=== PATIENT | female | born 1960 | race African-American/Black ===

== ENCOUNTER 2017-06-16 05:50 | Inpatient (IN) | payer OTHER ==
[~2017-06-16] VITALS: Ht 167.6 cm; Wt 73.9 kg
[~2017-06-16 05:50] MED LIST: aspirin PO; metformin
[2017-06-16] MEDS ORDERED: ASPIRIN 325MG TABLET PO ONE (08:15)
[2017-06-16 08:27] LABS: BASOPHILS % 0.6 % (0.0-2.0); EOSINOPHILS % 3.3 % (0.0-5.0); HEMATOCRIT. 35.1 % (36.0-48.0); HEMOGLOBIN. 11.5 g/dL (12.0-16.0); LYMPHOCYTES % 21.3 % (20.0-50.0); MEAN CORPUSCULAR HEMOGLOBIN 24.9 pg (28.0-32.0); MEAN CORPUSCULAR VOLUME 76.2 fL (81.0-99.0); MEAN PLATELET VOLUME 6.6 fl (7.4-10.4); MONOCYTES % 5.7 % (2.0-8.0); NEUTROPHILS % 69.1 % (40.0-76.0); PLATELET 440 x1000/uL (130-400); RED BLOOD CELL COUNT 4.61 mill/uL (4.2-5.4); RED CELL DISTRIBUTION WIDTH 14.8 % (11.6-14.6)
[2017-06-16 08:36] LABS: PARTIAL THROMBOPLASTIN TIME 23.9 sec (23.4-31.0); PROTHROMBIN TIME 10.7 sec (9.4-11.6)
[2017-06-16 08:45] LABS: CARBON DIOXIDE 26 mEq/L (21-32); CHLORIDE 107 mEq/L (98-107); TROPONIN I < 0.02 ng/mL (0.00-0.04)
[2017-06-16 11:12] VITALS: BP 121/68
[2017-06-16 11:30] VITALS: BP 161/70
[2017-06-16] MEDS ORDERED: ZOLPIDEM TARTRATE 5MG TABLET PO PRN (12:00)
[2017-06-16] MEDS ORDERED: CLONIDINE 0.1MG TABLET PO PRN (12:00)
[2017-06-16] MEDS ORDERED: DIPHENHYDRAMINE 50MG/ML VIAL IV PRN (12:00)
[2017-06-16] MEDS ORDERED: ACETAMINOPHEN 325MG TABLET PO PRN (12:00)
[2017-06-16] MEDS ORDERED: TRAMADOL 50MG TABLET PO PRN (12:00)
[2017-06-16] MEDS ORDERED: LORAZEPAM 2MG/ML CPJ IV PRN (12:00)
[2017-06-16] MEDS ORDERED: GUAIFENESIN 200MG/10ML SUGAR FREE UDC PO PRN (12:00)
[2017-06-16] MEDS ORDERED: MORPHINE SULFATE 4 MG/ML CPJ (NOT FOR IM USE) IV PRN (12:00)
[2017-06-16] MEDS ORDERED: MAGNESIUM/ALUMINUM HYDROXIDE/SIMETHICONE 30ML UDC PO PRN (12:00)
[2017-06-16] MEDS ORDERED: NITROGLYCERIN 0.4MG TABLET SL SL PRN (12:00)
[2017-06-16] MEDS ORDERED: IPRATROPIUM/ALBUTEROL 0.5-3(2.5)MG/3ML NEB INH PRN (12:00)
[2017-06-16] MEDS ORDERED: NA PHOS,M-B/NA PHOS,DI-BA ENEMA 118ML PR PRN (12:00)
[2017-06-16] MEDS ORDERED: DOCUSATE SODIUM 100MG CAPSULE PO PRN (12:00)
[2017-06-16] MEDS: METOPROLOL TARTRATE 25MG TABLET PO SCH ×2 (12:20→21:00)
[2017-06-16] MEDS: PANTOPRAZOLE SODIUM 40 MG/VIAL IV SCH (12:21)
[2017-06-16] MEDS: ENOXAPARIN 40MG/0.4ML SYR SUBCUT SCH (12:21)
[2017-06-16 12:39] LABS: FOLIC ACID (FOLATE) SERUM 7.2 ng/mL (>5.38)
[2017-06-16 15:18] LABS: CREATINE KINASE 128 IU/L (26-192); CREATINE KINASE MB FRACTION 1.2 ng/mL (0.5-3.6); TROPONIN I < 0.02 ng/mL (0.00-0.04)
[2017-06-16 16:00] VITALS: BP 120/60
[2017-06-16] MEDS ORDERED: LORAZEPAM (16:13)
[2017-06-16] MEDS ORDERED: ABIL5 PO (16:13)
[2017-06-16] MEDS ORDERED: METF500T4 PO (16:13)
[2017-06-16] MEDS ORDERED: EFFEXOR (16:13)
[2017-06-16] MEDS ORDERED: DEXTROSE 50% WATER 50ML SYRINGE IV PRN (17:30)
[2017-06-16] MEDS ORDERED: ASPI-1158 PO (18:00)
[2017-06-16] MEDS: ONDANSETRON HCL 4MG/2ML VIAL IV PRN (18:45)
[2017-06-16 20:00] VITALS: BP 109/66
[2017-06-16] MEDS: INSULIN LISPRO 100 UNITS/ML SUBCUT SCH (21:00)
[2017-06-16] MEDS ORDERED: ATORVASTATIN CALCIUM 20MG TABLET PO SCH (21:00)
[2017-06-16] MEDS: BLOOD SUGAR DIAGNOSTIC STRIP TEST SCH (21:45)
[2017-06-16 23:06] LABS: CREATINE KINASE MB FRACTION 1.4 ng/mL (0.5-3.6); TROPONIN I 0.02 ng/mL (0.00-0.04)
[2017-06-17] VITALS: BP 117/61
[2017-06-17 04:23] VITALS: BP 117/61
[2017-06-17] MEDS: INSULIN LISPRO 100 UNITS/ML SUBCUT SCH ×4 (07:04→20:27)
[2017-06-17] MEDS: BLOOD SUGAR DIAGNOSTIC STRIP TEST SCH ×4 (07:04→20:27)
[2017-06-17 08:00] VITALS: BP 145/61
[2017-06-17] MEDS ORDERED: ASPIRIN 325MG EC TABLET PO SCH (09:00)
[2017-06-17] MEDS: PANTOPRAZOLE SODIUM 40 MG/VIAL IV SCH (09:28)
[2017-06-17] MEDS: METOPROLOL TARTRATE 25MG TABLET PO SCH ×2 (09:28→20:27)
[2017-06-17] MEDS: ONDANSETRON HCL 4MG/2ML VIAL IV PRN (09:34)
[2017-06-17] MEDS: ENOXAPARIN 40MG/0.4ML SYR SUBCUT SCH (12:46)
[2017-06-17 16:00] VITALS: BP 139/63
[2017-06-17 20:00] VITALS: BP 125/62
[2017-06-17] MEDS ORDERED: ATORVASTATIN CALCIUM 10MG TABLET PO SCH (21:00)
[2017-06-17 23:33] VITALS: BP 142/62
[2017-06-18 00:01] VITALS: BP 142/62
[2017-06-18] MEDS ORDERED: FAMOTIDINE 20MG/2ML VIAL IV SCH (09:00)
== END 2017-06-18 01:52 | disposition short-term general hospital (02) | DRG 311 ==
LOC: ER 05:50 → 5WST 09:34 → ENRESERV 10:03
PROVIDERS: ADMIT Internal Medicine; ATTEND Internal Medicine
DX: I24.9 Acute ischemic heart disease, unspecified (principal); I10 Essential (primary) hypertension; F32.9 Major depressive disorder, single episode, unspecified; E11.9 Type 2 diabetes mellitus without complications; D64.9 Anemia, unspecified; M19.90 Unspecified osteoarthritis, unspecified site; J44.9 Chronic obstructive pulmonary disease, unspecified; F41.9 Anxiety disorder, unspecified; M48.00 Spinal stenosis, site unspecified; E78.00 Pure hypercholesterolemia, unspecified; Z79.82 Long term (current) use of aspirin; Z85.3 Personal history of malignant neoplasm of breast; Z90.49 Acquired absence of other specified parts of digestive tract; Z90.710 Acquired absence of both cervix and uterus; Z90.11 Acquired absence of right breast and nipple
CPT/HCPCS: 36415; 70450; 71010; 80053; 80061; 82550; 82553; 82607; 82746; 82962; 83036; 83540; 83550; 83735; 83880; 84484; 85025; 85610; 85730; 93005; 93970; 99285; C9113; J1650; J2405

== ENCOUNTER 2023-07-29 10:48 | Emergency (ER) | payer OTHER, MEDICAID ==
[~2023-07-29] VITALS: Ht 172.7 cm; Wt 108.0 kg
[~2023-07-29 10:48] MED LIST changes: +ABIL5 PO; +ASPI-1406 PO; +EFFEXOR; +LORAZEPAM; +METF-414 PO; -aspirin PO; -metformin
[2023-07-29 10:52] VITALS: O2SAT 92
[2023-07-29 11:32] LABS: BASOPHILS % 0.5 % (0.0-2.0); DIFFERENTIAL COMMENT 0; EOSINOPHILS % 0.8 % (0.0-5.0); HEMATOCRIT. 31.9 % (36.0-48.0); LYMPHOCYTES % 12.1 % (20.0-50.0); MEAN CORPUSCULAR HEMOGLOBIN 24.4 pg (28.0-32.0); MEAN CORPUSCULAR HGB CONC 31.5 g/dL (31.0-37.0); MEAN CORPUSCULAR VOLUME 77.6 fL (81.0-99.0); MEAN PLATELET VOLUME 6.7 fl (7.4-10.4); MONOCYTES % 8.3 % (2.0-8.0); NEUTROPHILS % 78.3 % (40.0-76.0); PLATELET 491 x1000/uL (130-400); RED BLOOD CELL COUNT 4.11 mill/uL (4.2-5.4); RED CELL DISTRIBUTION WIDTH 14.2 % (11.6-14.6); WHITE BLOOD COUNT 16.5 x1000/uL (4.5-11.0)
[2023-07-29 11:41] LABS: CHLORIDE 104 mEq/L (98-107); INDEX HEMOLYSI 1 (1-3); INDEX ICTERIC 1 (1-4); INDEX LIPEMIC 1 (1-3); SODIUM 137 mEq/L (136-145)
[2023-07-29 11:50] LABS: ALANINE AMINOTRANSFERASE 44 IU/L (13-61); ALBUMIN 3.3 g/dL (3.4-5.0); ASPARTATE AMINOTRANSFERASE 41 IU/L (15-37); BILIRUBIN TOTAL 0.4 mg/dL (0.1-1.0); CALCIUM 9.1 mg/dL (8.5-10.1); CARBON DIOXIDE 25 mEq/L (21-32); CREATININE 1.7 mg/dL (0.6-1.3); GLUCOSE 140 mg/dL (70-105); NT PRO B-TYPE NATRIURETIC PEP 90 pg/mL (5-125); PROTEIN TOTAL 7.7 g/dL (6.0-8.3); TROPONIN I HIGH SENSITIVITY 44 ng/L (<54); UREA NITROGEN BLOOD 21 mg/dL (7-21)
[2023-07-29 12:51] LABS: TROPONIN I HIGH SENSITIVITY 43 ng/L (<54)
[2023-07-29 14:21] VITALS: BP 135/50; PULSE 94; RESP 16; TEMP 98.3
== END 2023-07-29 14:25 | disposition home or self-care (01) ==
LOC: ER 10:48
DX: R07.89 Other chest pain (principal); R06.02 Shortness of breath; J44.9 Chronic obstructive pulmonary disease, unspecified; F32.9 Major depressive disorder, single episode, unspecified; Z85.9 Personal history of malignant neoplasm, unspecified; E11.9 Type 2 diabetes mellitus without complications; Z90.710 Acquired absence of both cervix and uterus
CPT/HCPCS: 36415; 71045; 80053; 83880; 84484; 85025; 93005; 99285

== ENCOUNTER 2023-10-18 20:43 | Emergency (ER) | payer OTHER, MEDICAID ==
[~2023-10-18] VITALS: Ht 175.3 cm; Wt 77.5 kg
[~2023-10-18 20:43] MED LIST changes: +CHOL400T10 PO; +DEUT6TAB PO; -EFFEXOR; +ENOX40SY27 SQ; +FERR325T6 PO; +FLUO20TA29 PO; +HYDR10TA34 MT; +LAMO200T50 PO; -LORAZEPAM; +NALO4SPR NS; +ROSU20TA2 PO; +SULF1TAB48 MT; +TIOT18CA3 IH; +TRAZ-252 PO
[2023-10-18 20:45] VITALS: O2SAT 100
[2023-10-18] MEDS ORDERED: ENOXAPARIN 100MG/ML SYR SUBCUT ONE (22:30)
[2023-10-18 23:41] LABS: INR 1.1; PARTIAL THROMBOPLASTIN TIME 30.8 sec (23.4-31.0); PROTHROMBIN TIME 11.3 sec (9.6-11.0)
[2023-10-18 23:45] LABS: ALANINE AMINOTRANSFERASE 37 IU/L (10-49); ALBUMIN 3.5 g/dL (3.2-4.8); ASPARTATE AMINOTRANSFERASE 55 IU/L (<34); BILIRUBIN TOTAL 0.3 mg/dL (0.1-1.0); CALCIUM 8.7 mg/dL (8.7-10.4); CARBON DIOXIDE 23 mEq/L (21-32); CHLORIDE 98 mEq/L (98-107); CREATININE 1.5 mg/dL (0.6-1.0); GLUCOSE 93 mg/dL (70-105); POTASSIUM 4.3 mEq/L (3.5-5.1); PROTEIN TOTAL 6.2 g/dL (6.0-8.3); SODIUM 130 mEq/L (136-145); TROPONIN I HIGH SENSITIVITY 9 ng/L (3.0-34); UREA NITROGEN BLOOD 18 mg/dL (9-23)
[2023-10-18 23:54] LABS: ETHANOL BLOOD < 10 mg/dL (<10)
[2023-10-18 23:57] LABS: BASOPHILS % 0.3 % (0.0-2.0); DIFFERENTIAL COMMENT 0; EOSINOPHILS % 0.9 % (0.0-5.0); HEMATOCRIT. 22.8 % (36.0-48.0); HEMOGLOBIN. 7.3 g/dL (12.0-16.0); LYMPHOCYTES % 12.3 % (20.0-50.0); MEAN CORPUSCULAR HEMOGLOBIN 23.2 pg (28.0-32.0); MEAN CORPUSCULAR HGB CONC 32.1 g/dL (31.0-37.0); MEAN CORPUSCULAR VOLUME 72.4 fL (81.0-99.0); MEAN PLATELET VOLUME 7.8 fl (7.4-10.4); MONOCYTES % 8.4 % (2.0-8.0); NEUTROPHILS % 78.1 % (40.0-76.0); PLATELET 440 x1000/uL (130-400); RED BLOOD CELL COUNT 3.15 mill/uL (4.2-5.4); WHITE BLOOD COUNT 14.4 x1000/uL (4.5-11.0)
[2023-10-19 01:35] LABS: TROPONIN I HIGH SENSITIVITY 9 ng/L (3.0-34)
[2023-10-19 03:25] VITALS: BP 115/47; PULSE 92; RESP 19; TEMP 97.2
== END 2023-10-19 03:30 | disposition home or self-care (01) ==
LOC: ER 20:43
DX: R06.02 Shortness of breath (principal); J44.9 Chronic obstructive pulmonary disease, unspecified; F32.9 Major depressive disorder, single episode, unspecified; E11.9 Type 2 diabetes mellitus without complications; Z90.710 Acquired absence of both cervix and uterus; Z90.49 Acquired absence of other specified parts of digestive tract; Z79.899 Other long term (current) drug therapy
CPT/HCPCS: 80053; 80320; 83880; 83690; 85025; 85610; 85730; 84484 ×2; 36415 ×2; 71045; 93005; 96372; 99285; J1650; G0480